=== PATIENT | female | born 1985 | race African-American/Black ===

== ENCOUNTER 2017-10-22 13:57 | Emergency (ER) | payer SELFPAY ==
[~2017-10-22] VITALS: Ht 180.3 cm; Wt 84.0 kg
[2017-10-22] MEDS ORDERED: SODIUM CHLORIDE 0.9% 1,000 ML IV ONE (14:09)
[2017-10-22 14:36] LABS: BASOPHILS % 0.7 % (0.0-2.0); EOSINOPHILS % 2.7 % (0.0-5.0); HEMOGLOBIN. 12.3 g/dL (12.0-16.0); LYMPHOCYTES % 23.3 % (20.0-50.0); MEAN CORPUSCULAR HEMOGLOBIN 26.7 pg (28.0-32.0); MEAN CORPUSCULAR VOLUME 78.2 fL (81.0-99.0); MEAN PLATELET VOLUME 8.3 fl (7.4-10.4); MONOCYTES % 9.7 % (2.0-8.0); NEUTROPHILS % 63.6 % (40.0-76.0); PLATELET 268 x1000/uL (130-400); RED BLOOD CELL COUNT 4.61 mill/uL (4.2-5.4); RED CELL DISTRIBUTION WIDTH 17.5 % (11.6-14.6)
[2017-10-22 14:40] LABS: CHLORIDE 105 mEq/L (98-107)
[2017-10-22 14:48] LABS: ETHANOL BLOOD < 10 mg/dL
[2017-10-22 17:01] LABS: *BARBITURATES SCREEN URINE NEGATIVE (NEGATIVE); PHENCYCLIDINE URINE SCREEN NEGATIVE (NEGATIVE)
[2017-10-22 17:02] LABS: *AMPHETAMINES SCREEN URINE PRESUMTIVE POSITIVE (NEGATIVE); *BENZODIAZEPINES SCREEN URINE NEGATIVE (NEGATIVE); *COCAINE SCREEN URINE PRESUMTIVE POSITIVE (NEGATIVE); CANNABINOID URINE SCREEN PRESUMTIVE POSITIVE (NEGATIVE); METHADONE URINE SCREEN NEGATIVE (NEGATIVE); OPIATES URINE SCREEN NEGATIVE (NEGATIVE)
[2017-10-22 17:42] VITALS: BP 115/72
== END 2017-10-22 17:48 | disposition home or self-care (01) ==
LOC: ER 14:13
DX: G92 Toxic encephalopathy (principal); F14.129 Cocaine abuse with intoxication, unspecified; F12.129 Cannabis abuse with intoxication, unspecified; F15.129 Other stimulant abuse with intoxication, unspecified; I49.8 Other specified cardiac arrhythmias
CPT/HCPCS: 36415; 80048; 80305; 80307; 80329; 85025; 93005; 99285; G0482; J7030; Z7610